=== PATIENT | male | born 1970 | race Caucasian/White ===

== ENCOUNTER 2025-02-12 09:03 | Emergency (ER) | payer MEDICARE, MEDICAID, SELFPAY ==
[2025-02-12 09:29] VITALS: BP 148/95; PULSE 78; RESP 16; TEMP 36.7; O2SAT 95; BMI 31.4
[2025-02-12 09:29] LABS: Basophils % 0.5 %; Eosinophils # 0.1 10^3/uL (0.0-0.8); Eosinophils % 1.5 %; Hematocrit 55.5 % (37-53); Lymphocytes # 2.5 10^3/uL (0.8-4.8); Lymphocytes % 28.3 %; Mean Corpuscular HGB Conc 31.7 g/dL (30-55); Mean Corpuscular Hemoglobin 30.2 pg (27-33); Mean Corpuscular Volume 95.4 fl (82-101); Mean Platelet Volume 9.7 fL (7.4-10.4); Monocytes # 0.5 10^3/uL (0.2-0.9); Monocytes % 5.6 %; Neutrophils # 5.61 10^3/uL (1.8-7.7); Neutrophils % 63.9 %; Nucleated Red Blood Cells % 0 %; Platelet Count 171 10^3/cmm (157-399); Red Blood Count 5.82 10^6/uL (3.85-5.65); Red Cell Distribution Width 14.6 % (12.1-15.1); White Blood Count 8.77 10^3/uL (3.29-11.43)
--- NOTE | 2025-02-12 09:30 | ECG_ITS ---
[facility] Test Date: 2025-02-12 Pat Name: Ravi Mar Department: Room: Gender: Male [employer]: : 1970 Requested By: Carlo Jerome Order Number: [id number] Constantine MD: Jayjay Stevenson M.D. Measurements Intervals [place] Rate: 79 P: 76 DE: 137 QRS: 71 QRSD: 117 T: 68 QT: 375 QTc: 432 Interpretive Statements SINUS RHYTHM SEPTAL MYOCARDIAL INFARCTION , OF INDETERMINATE AGE [40+ ms Q WAVE IN V1/V2] No previous ECG available for comparison Electronically Signed On 02-12-2025 19:57:32 CDT by Jayjay Stevenson M.D. [email or web address]
[2025-02-12 09:56] LABS: Alanine Aminotransferase 20 U/L (0-41); Albumin Level 3.9 g/dL (3.5-5.2); Alkaline Phosphatase 108 U/L (40-130); Aspartate Amino Transferase 22 U/L (0-40); Blood Urea Nitrogen 12 mg/dL (6-20); Calcium 9.1 mg/dL (8.5-10.5); Carbon Dioxide 22 mmol/L (22-29); Chloride 103 mmol/L (98-107); Creatinine Clr Calc Pharmacy 81.8449; Globulin 3.3 g/dL (1.3-4.6); Glomerular Filtration Rate 70.3 mL/min (90-130); Glucose 110 mg/dL (65-115); Lipase 27 U/L (13-60); Osmolality Calculated 286 mOsm/kg (285-295); Sodium 138 mmol/L (136-145); Total Bilirubin 0.4 mg/dL (0.15-1.2); Total Protein 7.2 g/dL (6.6-8.7)
[2025-02-12 10:00] LABS: Anion Gap 17.4 (5-19); Potassium 4.4 mmol/L (3.5-5.1)
== END 2025-02-12 10:52 | disposition left against medical advice (07) ==
PROVIDERS: Emergency Medicine; Emergency Provider Family Medicine; PCP Emergency Medicine
DX: Z01.89 Encounter for other specified special examinations (principal); I21.9 Acute myocardial infarction, unspecified; Z53.21 Procedure and treatment not carried out due to patient leaving prior to being seen by health care provider
CPT/HCPCS: 36415; 80053; 83690; 85025; 93005

== ENCOUNTER 2025-07-01 08:14 | Emergency (ER) | payer MEDICARE, MEDICAID, SELFPAY ==
--- OUTSIDE RECORDS SUMMARY | 2025-07-01 08:19 | XMS_ITS | Encounter Summary ---
Author Organization [facility] Address [address] [place] [address] Care Team Providers Care Grounds Restoration Specialist Name Role Phone Baljit Umana MD Primary Care Provider [phone] Encounter Details Date Type Department Care Team (Late Contact Info) Description 03/29/2009 Emergency [facility], Authorized P NO ADDRESS ON FILE Raul Rachel MD [address] [place] [phone] Blood in Stool; External Hemorrhoids without Mention of Complication Social History Tobacco Use Types Packs/Day Years Used Date Smoking Tobacco: Never Assessed Sex and Gender Information Value Date Recorded Sex Assigned at Not on file 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 Gender Identity Not on file Sexual Orientation Not on file documented as of this encounter Plan of Treatment Upcoming Encounters Date Type Department Care Team (Late st Contact Info) Description 07/06/2025 1:05 PM CDT Office Visit [facility] Infectious Disease-[place] [address] [place] [address] Jeremy Anaya MD [address] [address] [place] [address] documented as of this encounter Visit Diagnoses Diagnosis Blood in stool External hemorrhoids without mention of complication documented in this encounter Additional Health Concerns Infection Onset Date Last Indicated Resolved Time R/O GI Pathogen 01/21/2024 01/21/2024 01/21/2024 8 :10 PM CDT documented as of this encounter Care Teams Grounds Restoration Specialist Relationship Specialty Start Date End Date Baljit Umana MD [address] [place] [address] PCP - General Family Practice 11/13/16 documented as of this encounter
--- OUTSIDE RECORDS SUMMARY | 2025-07-01 08:19 | XMS_ITS | Clinical Summary ---
Author Organization [facility] Address [address] Jones: Epic Prelude ADT [place] [address] Care Team Providers Care Hospice Home Care Coordinator Name Role Phone Baljit Umana MD Primary Care Provider [phone] Allergies No known active allergies Medications levothyroxine 175 mcg tablet Take 1 Tablet (175 mcg) by mouth daily in the morning. 30 Tablet 6 4 Active acetaminophen (TYLENOL) 325 mg tablet Take 650 mg by mouth every 4 hours as needed. Active traMADoL (ULTRAM) 50 mg tablet TAKE ONE TABLET BY MOUTH FOUR TIMES DAILY NEEDED FOR lumbar spondylosis pain. 4 Active sulfamethoxazol e-trimethoprim (BACTRIM DS) 800-160 mg tablet Take 1 Tablet by mouth 2 times daily. 30 Tablet 11 4 Active oxyBUTYnin (DITROPAN XL) 5 mg Extended Release 24 hour tabletIndicatio ns:Urinary urgency TAKE ONE TABLET BY MOUTH DAILY. 90 Tablet 1 5 Active bictegravir-emt ricitabine-teno fovir alafenam (Biktarvy) 50-200-25 mg Tablet TAKE ONE TABLET BY MOUTH ONCE DAILY. 30 Tablet 5 5 Active ondansetron (ZOFRAN) 4 mg Tablet TAKE ONE TABLET BY MOUTH EVERY EIGHT hours NEEDED FOR nausea/emesis. 90 Tablet 3 5 Active Active Problems Problem Noted Date Diagnosed Date Encounter for long-term (cur rent) use of high-risk medication 08/11/2024 GI bleeding 01/21/2024 CKD (chronic kidney disease) stage 3, GFR 30-59 ml/min 01/21/2024 Anemia 01/21/2024 Severe hypothyroidism 01/21/2024 Hematochezia 01/21/2024 Acute lower GI bleeding 01/21/2024 Adjustment disorder with mix ed disturbance of emotions and conduct 04/02/2017 Methamphetamine abuse 04/02/2017 Marijuana use 04/02/2017 Meningitis 02/08/2017 Overview (04/04/2021): suspected AIDS 06/06/2016 Cigarette dependence 09/04/2015 Glaucoma suspect 06/04/2013 Human immunodeficiency virus (HIV) disease 11/16 Seborrheic dermatitis 03/02/2012 Drug-induced nausea and vomiting 09/15/2011 AIDS (acquired immunodeficiency syndrome), CD4 < =200 05/12/2011 Encounters Date Type Department Care Team Description 05/31/2025 External Device Data STL ABSTRACTION Provider, Abstract 05/03/2025 External Device Data STL ABSTRACTION Provider, Abstract 04/03/2025 Refill [facility] Infectious Disease[address] [place] [address] Jeremy Anaya MD from Last 3 Months Immunizations Immunization Administration Dates Next Due Influenza Vaccine Split 3+ Yrs PF IM 08/04/2014, 06/03/2013,07/02/2012 Family History Medical History Relation Name Comments Hypertension Brother Diabetes Maternal Grandmother Thyroid Disease Mother Amblyopia Other Arthritis-rheumatoid Neg Hx Blindness Neg Hx Cancer Neg Hx Detachment/Tears Neg Hx Glaucoma Neg Hx Heart Disease Neg Hx Macular Degen Neg Hx Strabismus Neg Hx Stroke Neg Hx Relation Name Status Comments Brother Maternal Grandmother Mother Other Social History Tobacco Use Types Packs/Day Years Used Date Smoking Tobacco: Former Cigarettes Smokeless Tobacco: Never Tobacco Cessation:Counseling Given: Not Answered Alcohol Use Standard Drinks/Week Comments No 0 (1 standard drink = 0.6 oz pur e alcohol) Feeling Safe Answer Date Recorded Are you in a relationship wi th someone who hurts you emotionally and/or physically? 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 Gender Identity Not on file Sexual Orientation Not on file Last Filed Vital Signs Vital Sign Reading Time Taken Comments Blood Pressure 122/90 12/08/2024 1:49 PM CDT Pulse 84 12/08/2024 1:49 PM CDT Temperature 36.9 C (98.5 F) 12/08/2024 1:49 PM CDT Respiratory Rate 19 01/24/2024 7:49 AM CDT Oxygen Saturation 95% 04/14/2024 2:13 PM CDT Inhaled Oxygen Concentration - - Weight 95.3 kg (210 lb) 12/08/2024 1:49 PM CDT Height 170.2 cm (5' 7 ) 12/08/2024 1:49 PM CDT Body Mass Index 32.89 12/08/2024 1:49 PM CDT Plan of Treatment Upcoming Encounters Date Type Department Care Team (Late st Contact Info) Description 07/06/2025 1:05 PM CDT Office Visit [facility] Infectious Disease-[place] [address] [place] [address] Jeremy Anaya MD [address] [facility] [address] [place] [address] Health Maintenance Due Date Last Done Comments Pre-Diabetes and Diabetes Screening 1970 DTAP/TDAP/TD VACCINES (1 - Tdap) 1991 HEPATITIS B VACCINES (1 of 3 - 19+ 3-dose series) 1991 ZOSTER VACCINE (1 of 2) 1991 FIT-DNA Q 3 years 2017 FIT/FOBT Q 1 year 2017 Flex Sig/CT Colonography Q 5 years 2017 COLORECTAL SCREENING 01/21/2025 01/22/2024, 01/22/20 24 Colorectal Cancer Screening 01/21/2025 INFLUENZA VACCINE (#1) 2025 4, 06/03/2013, 07/02/2012 Procedures Procedure Name Priority Date/Time Associated Diagnosis Comments COLONOSCOPY REPORT 01/22/2024 1: 54 PM CDT from Last 3 Months or Most Recently Relevant to Health Maintenance Results * COLONOSCOPY REPORT (01/22/2024 1:54 PM CDT) Narrative Procedure Note Richie Landrum MD - 01/22/2024 1:54 PM CDT [facility] GI Patient Name: Sherry Mar Procedure Date: 01/22/2024 Date of : 1970 Admit Type: Inpatient Age: 53 Attending MD: Richie Landrum , , Procedure: Colonoscopy Indications: Rectal bleeding Providers: Richie Landrum Referring MD: Medicines: Monitored Anesthesia Care Complications: No immediate complications. Procedure: Pre-Anesthesia Assessment: - [place] Protocol: - Pre-procedure Verification: Prior to the procedure, the patient's identity was verified by full name and date of . The patient's identity was verified on all pertinent medical records, including History and Physical and pre-anesthesia assessment. Also prior to the procedure, a History and Physical was performed, and patient medications, allergies and sensitivities were reviewed. The patient's tolerance of previous anesthesia was reviewed. The patient is competent. The risks and benefits of the procedure and the sedation options and risks were discussed with the patient. All questions were answered and informed consent was obtained. - Marking: The endoscopic procedure was visually marked on a patient wrist band delineating the patient name, proposed procedure and endoscopist's initials. - Time-Out: Prior to the start of the procedure, the patient's identification, proposed procedure, accurate signed consent, correctly labeled images and records, and need for prophylactic antibiotics were verified by the physician and the nurse in the endoscopy suite. - Prior to the procedure, a History and Physical was performed, and patient medications and allergies were reviewed. The patient's tolerance of previous anesthesia was also reviewed. The risks and benefits of the procedure and the sedation options and risks were discussed with the patient. All questions were answered, and informed consent was obtained. Prior Anticoagulants: The patient has taken no anticoagulant or antiplatelet agents. ASA Grade Assessment: II - A patient with mild systemic disease. After reviewing the risks and benefits, the patient was deemed in satisfactory condition to undergo the procedure. After I obtained informed consent, the scope was passed under direct vision. Throughout the procedure, the patient's blood pressure, pulse, and oxygen saturations were monitored continuously. The Colonoscope was introduced through the anus and advanced to the cecum, identified by appendiceal orifice and ileocecal valve. The colonoscopy was performed without difficulty. The patient tolerated the procedure well. The quality of the bowel preparation was adequate. The ileocecal valve, appendiceal orifice, and rectum were photographed. The quality of the bowel preparation was fair. Estimated Blood Loss: Estimated blood loss was minimal. Findings: The digital rectal exam was normal. Pertinent negatives include normal sphincter tone. Non-bleeding internal hemorrhoids were found during retroflexion. The hemorrhoids were small. Two sessile polyps were found in the transverse colon. The polyps were 12 mm in size. These polyps were removed with a cold snare. Resection and retrieval were complete. Verification of patient identification for the specimen was done by the physician and nurse using the patient's name and date. Estimated blood loss was minimal. Impression: - Preparation of the colon was fair. - Non-bleeding internal hemorrhoids. - Two 12 mm polyps in the transverse colon, removed with a cold snare. Resected and retrieved. Recommendation: - Await pathology results. - No aspirin, ibuprofen, naproxen, or other non-steroidal anti-inflammatory drugs for 2 weeks. - Resume previous diet. - Continue present medications. Richie Landrum, 01/22/2024 1:54:27 PM Number of Addenda: 0 Note Initiated On: 01/22/2024 1:30 PM Scope Withdrawal Time 0 hours 9 minutes 17 seconds Scope In: 1:35:13 PM Scope Out: 1:51:03 PM [address] [place], [place] Richie Landrum MD GI PROCEDURE ORDERABL ES Final Result from Last 3 Months or Most Recently Relevant to Health Maintenance Insurance MEDICAID [place] [facility] DUAL COMPLETE HMO DSNP [facility] [id number] * Guarantor: SHERRY MAR Account Type Relation to Patient Date of Phone Billing Address Personal/Family [address] [place] [address] [employer] Medicare Part D Advance Directives For more information, please contact: [phone] * Full Code (Latest Code Status on File) Date Activated Date Inactivated Comments 01/21/2024 1:06 AM 01/24/2024 6:28 PM Care Teams Hospice Home Care Coordinator Relationship Specialty Start Date End Date Baljit Umana MD [address] [facility] [place] [phone] PCP - General Family Practice 11/13/16
--- OUTSIDE RECORDS SUMMARY | 2025-07-01 08:19 | XMS_ITS | Encounter Summary ---
Author Organization [facility] Address [address] [place] [address] Care Team Providers Care Clinical Support Associate Name Role Phone Baljit Umana MD Primary Care Provider [phone] Encounter Details Date Type Department Care Team (Latest Contact Info) Description 01/01/2006 Outpatient [place] [facility] 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
--- OUTSIDE RECORDS SUMMARY | 2025-07-01 08:19 | XMS_ITS | Encounter Summary ---
Author Organization [facility] Address [address] [place] [address] Care Team Providers Care Manager Nuclear Name Role Phone Baljit Umana MD Primary Care Provider [phone] Encounter Details Date Type Department Care Team (Latest Contact Info) Description 12/24/2005 Outpatient Historical [facility] 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
--- OUTSIDE RECORDS SUMMARY | 2025-07-01 08:19 | XMS_ITS | Encounter Summary ---
Author Organization [facility] Address [address] [place] [address] Care Team Providers Care As400 Developer Name Role Phone Baljit Umana MD Primary Care Provider [phone] Encounter Details Date Type Department Care Team (Latest Contact Info) Description 02/03/2006 Outpatient Historical [facility] General Surgery 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
--- OUTSIDE RECORDS SUMMARY | 2025-07-01 08:19 | XMS_ITS | Clinical Summary ---
Author Organization [facility] Address [address] [place] [address] Care Team Providers Care Development Analyst Name Role Phone Baljit Umana MD Primary Care Provider [phone] Allergies No known active allergies Medications acetaminophen (TYLENOL) 325 mg tablet Take 650 mg by mouth every 4 hours as needed. Active ibuprofen (MOTRIN) 200 mg tablet Take 600 mg by mouth every 6 hours as needed for Pain, Mild. Active naproxen (NAPROSYN) 375 mg tablet Take 375 mg by mouth 2 times daily as needed for Pain, Moderate. Active ascorbic acid, vitamin C, (VITAMIN C) 500 mg tablet Take 1,000 mg by mouth daily. Active dolutegravir (TIVICAY) 50 mg Tablet tabletIndications:AID S (acquired immunodeficiency syndrome), CD4 <=200 (CMS/HCC) Take 1 Tablet (50 mg) by mouth daily. 30 Tablet 5 8 Active emtricitabine-tenofov ir, TDF, (TRUVADA) 200-300 mg TabletIndications:AID S (acquired immunodeficiency syndrome), CD4 <=200 (CMS/HCC) Take 1 Tablet by mouth daily. 30 Tablet 5 8 Active Active Problems Problem Noted Date Diagnosed Date Adjustment disorder with mix ed disturbance of emotions and conduct 04/02/2017 Methamphetamine abuse 04/02/2017 Marijuana use 04/02/2017 Meningitis 02/08/2017 Overview (02/08/2017): suspected AIDS 06/06/2016 Cigarette dependence 09/04/2015 Glaucoma suspect 06/04/2013 Human immunodeficiency virus (HIV) disease 11/16 Seborrheic dermatitis 03/02/2012 Drug-induced nausea and vomiting 09/15/2011 AIDS (acquired immunodeficiency syndrome), CD4 < =200 05/12/2011 Resolved Problems Problem Noted Date Diagnosed Date Resolved Date Transient diplopia 09/19/2013 7 Encounter for long-term (cur rent) use of other medications 09/15/2011 02/08/2017 Asymptomatic HIV infection, CD4 <=200 05/12/2011 05/12/2011 Shingles 05/12/2011 02/08/2017 Ivonne esophagitis 05/12/2011 02/09/20 17 Immunizations Immunization Administration Dates Next Due Influenza [...] Types Packs/Day Years Used Date Smoking Tobacco: Every Day Cigarettes 1 25 Smokeless Tobacco: Never Tobacco Cessation:Ready to Q uit: No; Counseling Given: Yes Alcohol Use Standard Drinks/Week Comments No 0 (1 standard drink = 0.6 oz pur e alcohol) Sex and Gender Information Value Date Recorded Sex Assigned at Not on file 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 Gender Identity Not on file Sexual Orientation Not on file Occupation Industry Job Start Date Job End Date Not on file Not on file Not on file Not on file Last Filed Vital Signs Vital Sign Reading Time Taken Comments Blood Pressure 149/92 03/17/2018 9:38 AM CDT Pulse 122 03/17/2018 9:38 AM CDT Temperature 36.6 C (97.9 F) 04/02/2017 8:00 PM CDT Respiratory Rate 20 03/17/2018 9:38 AM CDT Oxygen Saturation 98% 03/17/2018 9:38 AM CDT Inhaled Oxygen Concentration - - Weight 78 kg (172 lb) 03/17/2018 9:38 AM CDT Height 167.6 cm (5' 6 ) 03/17/2018 9:38 AM CDT Body Mass Index 27.76 03/17/2018 9:38 AM CDT Plan of Treatment Health Maintenance Due Date Last Done Comments DTAP/TDAP/TD VACCINES (1 - Tdap) 1991 HEPATITIS B VACCINES (1 of 3 - 19+ 3-dose series) 1991 ZOSTER VACCINE (1 of 2) 1991 COLORECTAL SCREENING 2017 Colorectal Cancer Screening 2017 FIT-DNA Q 3 years 2017 FIT/FOBT Q 1 year 2017 Flex Sig/CT Colonography Q 5 years 2017 INFLUENZA VACCINE (#1) 2025 4, 06/03/2013, 07/02/2012 Insurance [employer] Medicare Part D HEALTHC[employer]ATE[employer]IVES [employer] Advance Directives For more information, please contact: [phone] * Full Code (Latest Code Status on File) Date Activated Date Inactivated Comments 04/01/2017 3:53 PM 04/03/2017 2:24 PM * Full Code Date Activated Date Inactivated Comments 02/08/2017 6:03 PM 02/14/2017 1:24 PM Care Teams Development Analyst Relationship Specialty Start Date End Date Baljit Umana MD PCP - General Family Practice 11/13/16
[2025-07-01 08:23] VITALS: BP 154/87; PULSE 86; RESP 18; TEMP 36.9; O2SAT 95; BMI 32.3
--- NOTE | 2025-07-01 08:23 | W.ED.SKABFB ---
HPI - Skin/Abscess/Foreign Bdy General: Chief complaint: Skin/Abscess/Foreign Body Stated complaint: rash Time Seen by Provider: 07/01/25 08:20 Source: patient Mode of arrival: ambulatory Limitations: no limitations History of Present Illness: 54-year-old male states he has had a rash to his left side noticed 2 days ago. He states he had shingles before and has a similar appearance he is having sharp pains at that area to be rates as 7 out of 10. He denies any vomiting or diarrhea denies any worsening from fractures. Related Data Home Medications ?Medication ?Instructions ?Recorded ?Confirmed levothyroxine 175 mcg tablet 175 mcg PO DAILY 10/29/24 02/12/25 tramadol 50 mg tablet 50 mg PO Q4H PRN 10/29/24 02/12/25 Previous Rx's ?Medication ?Instructions ?Recorded albuterol sulfate 2.5 mg/3 mL 2.5 mg (3 mL) inhalation Q4H PRN 02/12/25 (0.083 %) solution for nebulization bronchospasm #90 mL levofloxacin 750 mg tablet 750 mg PO DAILY 7 days #7 tabs 02/12/25 ondansetron 8 mg disintegrating 8 mg PO Q8H PRN nausea and 02/12/25 tablet vomiting 5 days #15 tabs prednisone 20 mg tablet 60 mg (3 x 20 mg) PO DAILY 5 days 02/12/25 #15 tabs hydrocodone 5 mg-acetaminophen 325 1 tab PO Q6H PRN pain #14 tabs 07/01/25 mg tablet valacyclovir 1 gram tablet 1,000 mg PO TID 7 days #21 tabs 07/01/25 Allergies Allergy/AdvReac Type Severity Reaction Status Date / Time morphine Allergy ADR-Itching Verified 02/12/25 12:01 Review of Systems Skin/Breast: Reports: rash PFSH ED PFSH: Social History Smoking and tobacco/nicotine status: current every day tobacco/nicotine user (vape) Physical Exam Const: COMMON NORMALS: no acute distress, patient oriented x3 and healthy appearing HENMT: COMMON NORMALS: normocephalic HEAD & SCALP: normocephalic Neck/C-Spine: COMMON NORMALS: full ROM and supple Chest: COMMONS NORMALS: normal inspection of the chest Resp: COMMON NORMALS: normal respiratory effort Cardio: COMMON NORMALS: regular rate RATE: regular rate Extremity: COMMON NORMALS: normal to inspection and full ROM Neuro: COMMON NORMALS: patient oriented x3, moves all extremities and no focal motor deficits Psych: COMMON NORMALS: mental status grossly normal, Normal thought process present and cooperative THOUGHT PROCESS: Normal thought process present Skin: NARRATIVE SKIN EXAM: Vesicular rash is painful in a dermatomal pattern left lower abdomen Course Vital Signs: Vital signs: Vital Signs Temperature 98.4 F 07/01/25 08:23 Pulse Rate 86 07/01/25 08:23 Respiratory Rate 18 07/01/25 08:23 Blood Pressure 154/87 07/01/25 08:23 Pulse Oximetry 95 07/01/25 08:23 Oxygen Delivery Me thod Room Air 07/01/25 08:23 MDM - Skin/Abscess/Foreign Bdy Medicial Decision Making Patient presents here with rash consistent with shingles we will start him on valacyclovir along with pain meds he has no signs of any toxicity vitals are normal did go over treatment plan with him he stable for discharge he is to follow-up with PCP and return if worsening. No radiology studies performed this visit Discharge Plan Discharge Patient Disposition: Home Clinical Impression: Shingles Qualifiers: Herpes zoster complications: without complications Qualified Code(s): B02.9 - Zoster without complications Condition: Stable Prescriptions: New hydrocodone-acetaminophen 5-325 mg tablet 1 tab PO Q6H PRN (Reason: pain) Qty: 14 0RF valacyclovir 1 gram tablet 1,000 mg PO TID 7 Days Qty: 21 0RF No Action ipratropium-albuterol 0.5 mg-3 mg(2.5 mg base)/3 mL solution for nebulization 3 ml inhalation ONCE Qty: 1 0RF albuterol sulfate 2.5 mg /3 mL (0.083 %) solution for nebulization 2.5 mg inhalation Q4H PRN (Reason: bronchospasm) Qty: 90 0RF prednisone 20 mg tablet 60 mg PO DAILY 5 Days Qty: 15 0RF ondansetron 8 mg tablet,disintegrating 8 mg PO Q8H PRN (Reason: nausea and vomiting) 5 Days Qty: 15 0RF levofloxacin 750 mg tablet 750 mg PO DAILY 7 Days Qty: 7 0RF levothyroxine 175 mcg tablet 175 mcg PO DAILY tramadol 50 mg tablet 50 mg PO Q4H PRN Discharge Orders: Discharge ED (Routine); Ordered 07/01/25 Ordered By: Felix Youngblood Discharge Diet: Advance as tolerated Discharge Activity: Resume usual activity Patient Instructions: Shincassidyes (ED), Opioid Safety Print Language: Slovenian Coding Level of Care Code ED Act Tutor for Bradley Ortiz
[2025-07-01] MEDS: HYDROcodone-acetaminophen 5-325 mg Tablet 1 TAB PO (08:30)
== END 2025-07-01 08:30 | disposition home or self-care (01) ==
PROVIDERS: Emergency Provider Emergency Medicine
DX: B02.9 Zoster without complications (principal); F17.290 Nicotine dependence, other tobacco product, uncomplicated
CPT/HCPCS: 99283; J9999